=== PATIENT | female | born 1965 | race Caucasian/White ===

== ENCOUNTER → 2020-11-01 09:14 | Outpatient (BNVA) | payer BC, SELFPAY | PROVIDERS: Visit Provider Nurse Practitioner Family | DX: L98.9 Disorder of the skin and subcutaneous tissue, unspecified (principal); R53.83 Other fatigue; Z13.6 Encounter for screening for cardiovascular disorders | CPT/HCPCS: 80053; 80061; 84443; 85025 ==

== ENCOUNTER 2020-12-20 13:36 | Outpatient (CLI) | payer BC, SELFPAY ==
--- NOTE | 2020-12-20 16:36 | ONC CON_ITS ---
Dr. Lundberg New Patient Note Patient: Harini Collado Unit #: [id number]: [id number] Dicatated By: Cindi Lundberg M.D.Date of Visit: Dec 20, 2020 Onc MED New Patient/Consult Referring Physician: Dr. ESTEBAN GARIBAY M.D. History of Present Illness: Ms. 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 was spraying his farm and since then she is experiencing blisters and skin lesion specially bilateral hands and wrist area as mentioned above and not anywhere else including face, as per patient she never seek any medical help until she developed left facial skin lesion for which she was evaluated by [employer] in October, she underwent biopsy of left facial skin lesion which confirmed basal cell carcinoma subsequently underwent excision and at that time on November 07, 2020 she underwent biopsy of right hand skin and 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 Denies any history of NSAID intake, history of tanning bed use but more than 20 years ago, without any complications. Father with history of porphyria cutanea tarda But no history of PCT in the other family members including siblings, Denies any night sweats, denies any fever or chills denies any weight loss denies any dysphagia denies any joint problem except history of chronic knee pain for which she used to take hydrocodone for many years but then recently quit Past Medical History: Ms. Collado's medical history consists of anxiety and hypertension. Past Surgical History: Ms. Collado's surgical/procedural history consists of caesarean section. Medications: Ascorbic Acid 1 Tablet (of 500 mg) Tablet, chewable Oral daily, Cholecalciferol 1 Caplet (of 25 mcg ) Capsule Oral daily, Cranberry Concentrate 2 Caplet (of 500 mg) Capsule Oral daily, [facility] E 1 Caplet (of 200 Units) Capsule Oral daily, [facility] Fish Oil 2 Capsule (of 1200 mg) Oral daily, Cyanocobalamin 1 Tablet (of 500 mcg) Tablet Dispersable Oral daily, Magnesium 1 Caplet (of 400 mg) Capsule Oral daily, SM Zinc 1 Tablet (of 50 mg) Oral daily, Turmeric 1 Caplet (of 500 mg) Capsule Oral b.i.d. Allergies: Avocado Oil, Licorice Flavor, predniSONE, and ROOT BEER . Social History: Ms. Collado is . She is a daily smoker who smokes 1.0 pack/day. She drinks occasionally. She has indicated exposure to the following products: cigarettes. 30+ year history of smoking Drinks beer weekly. Family History: Ms. Collado's mother is alive: leukemia. Ms. Collado's father is : stroke. Ms. Collado has 1 brother who is . Review Of Symptoms: Review of Systems is not available for this patient. Vital Signs: Performed on Dec 20, 2020 14:37: 0, 21.83, 1.65 sq.m, 65 in, 98 %, 76 /min, 18 /min, 143/84 mm(hg) (HIGH), 98.0 F (LOW), and 131.2 lbs (HIGH). Performance Status: 0 - Fully active, able to carry on all predisease activities without restrictions. (ECOG) Physical Examination: ENMT - No mouth sores, no thrush, no jaundice, Respiratory - Lungs are clear to auscultation, Cardiovascular - Regular rate and rhythm of heart, Abdomen - Soft, bowel sounds present, Extremities - No visible edema but old healing mild scarring and scabs involving bilateral hands. Lab/Imaging: Most recent lab results are not available for this patient. 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 acquired History of father with porphyria cutanea tarda History of basal cell carcinoma involving left face status post excision in October 2020 History of smoking Plan: Discussed with patient regarding her disease status and possible etiology which could be acquired e.g. pseudoporphyria cutanea tarda, as per patient she never had this issue or problem until about 3 years prior to the diagnosis when she was exposed to [employer] weed killer and moreover no other parts of body shows any cutaneous lesions especially face. And also mentioned about her father with history of porphyria cutanea tarda so it could be hereditary too but no other family member has any history of skin disorder or iron overload. At this point, we will proceed with work-up to rule out acquired or PCT which include random urine for total porphyrin and porphobilinogen, plasma porphyrin level, genetic testing uroporphyrinogen decarboxylase (UROD) and hemochromatosis mutations, also consider CBC CMP and iron studies, hepatitis C and HIV testing, hepatic sonogram and alpha-fetoprotein level, MULU. At this point, patient is not symptomatic no skin blisters, old healing scars involving bilateral hands thus patient will return to clinic in about 3 weeks, if iron overload is confirmed, will consider phlebotomies to keep ferritin less than 25 on the other hand if there is no evidence of iron overload then will consider for fibrin depletion with low-dose chloroquine or hydrochloroquine. Patient was advised to quit smoking and also stop drinking beer and advised to avoid sun exposure and use sunscreen. And avoid iron rich food unless there is no evidence of iron overload and diagnostic work-up Signed By: Cindi Lundberg M.D. <<Signature on File>>
== END 2020-12-20 13:37 | disposition home or self-care (01) ==
LOC: ONCMED 13:43
PROVIDERS: Visit Provider Internal Medicine Hematology & Oncology
DX: E80.1 Porphyria cutanea tarda (principal); Z85.828 Personal history of other malignant neoplasm of skin; Z87.891 Personal history of nicotine dependence; Z79.899 Other long term (current) drug therapy
CPT/HCPCS: 99204